=== PATIENT | female | born 1940 | race Caucasian/White ===

== ENCOUNTER 2018-01-05 20:36 | Emergency (ER) | payer SELFPAY, MEDICARE ==
[2018-01-05] MEDS: ACETAMINOPHEN 325 MG TAB PO (23:55)
== END 2018-01-06 01:55 | disposition home or self-care (01) ==
LOC: E/R 20:36
DX: R51 Headache (principal); R40.2362 Coma scale, best motor response, obeys commands, at arrival to emergency department; R40.2242 Coma scale, best verbal response, confused conversation, at arrival to emergency department; R40.2132 Coma scale, eyes open, to sound, at arrival to emergency department
CPT/HCPCS: 70450; 99284-25